=== PATIENT | female | born 1985 | race African-American/Black ===

== ENCOUNTER 2021-12-27 21:08 | Emergency (ER) | payer MEDICAID, SELFPAY ==
[2021-12-27] MEDS ORDERED: Metoclopramide HCl 10 MG/2 ML VIAL ONE (21:26)
[2021-12-27] MEDS ORDERED: diphenhydrAMINE 50 MG/ML VIAL ONE (21:26)
== END 2021-12-27 22:46 | disposition home or self-care (01) ==
LOC: ERS 21:08
DX: R51.9 Headache, unspecified (principal)
CPT/HCPCS: 96365; 96375; J1200; J2765

== ENCOUNTER 2022-09-05 19:54 | Emergency (ER) | payer MEDICAID | END 2022-09-05 20:48 | disposition left against medical advice (07) | LOC: ERS 19:54 | DX: Z53.21 Procedure and treatment not carried out due to patient leaving prior to being seen by health care provider (principal) ==